=== PATIENT | male | born 1985 | race African-American/Black ===

== ENCOUNTER 2020-11-22 13:04 | Outpatient (CLI) | payer BC ==
[2020-11-22 13:35] LABS: POTASSIUM 4.1 mmol/L (3.5-5.1)
[2020-11-22] MEDS ORDERED: BARIUM SULFATE 450 ML ORAL.SUSP ONE (13:51)
[2020-11-22] MEDS ORDERED: IV NORMAL SALINE 250 ML IV ONE (13:51)
[2020-11-22] MEDS ORDERED: IOHEXOL 300MG/ML 100 ML INFUS..BTL ONE (13:51)
[2020-11-22] MEDS ORDERED: SWABABLE VALVE TRANSFER SET EA MC ONE (13:51)
== END 2020-11-22 23:59 | disposition home or self-care (01) ==
LOC: LAB 13:04
DX: N28.1 Cyst of kidney, acquired (principal); R14.0 Abdominal distension (gaseous)
CPT/HCPCS: 36415; J7050; Q9951; Q9967

== ENCOUNTER 2021-08-20 12:21 | Outpatient (CLI) | payer BC, OTHER ==
[2021-08-20 12:44] LABS: *BILIRUBIN,URIN NEGATIVE (NEGATIVE); *BLOOD, URINE NEGATIVE (NEGATIVE); *CLARITY,URINE CLEAR (CLEAR); *COLOR,URINE YELLOW (YELLOW); *KETONES,URINE NEGATIVE (NEGATIVE); *UROBILINOGEN,URINE 0.2 E.U./dl (NORMAL); LEUKOCYTE ESTERASE ,URINE NEGATIVE (NEGATIVE); NITRITE, URINE NEGATIVE (NEGATIVE); PH,URINE 5.5 (5.0-8.0); UGLUCOSE NEGATIVE (NEGATIVE)
[2021-08-20 12:52] LABS: HEMATOCRIT 43.9 % (36.7-47.1); MEAN CORPUSCULAR HEMOGLOBIN 28.8 uug (23.8-33.4); MEAN CORPUSCULAR VOLUME 86.7 fL (73.0-96.2); PLATELET COUNT (AUTO) 264 K/uL (152-348)
[2021-08-20] MEDS ORDERED: BARIUM SULFATE 450 ML ORAL.SUSP ONE (12:59)
[2021-08-20 13:41] LABS: THYROID STIMULATING HORMONE 1.89 mIU/mL (0.358-3.740)
[2021-08-20 13:58] LABS: BILIRUBIN,TOTAL 0.9 mg/dL (0.2-1.0); POTASSIUM 3.9 mmol/L (3.5-5.1); TOTAL PROTEIN, SERUM 7.8 g/dL (6.4-8.2)
[2021-08-20] MEDS ORDERED: IOHEXOL 300MG/ML 100 ML INFUS..BTL ONE (14:23)
[2021-08-20] MEDS ORDERED: IV NORMAL SALINE 250 ML IV ONE (14:23)
[2021-08-20] MEDS ORDERED: SWABABLE VALVE TRANSFER SET EA MC ONE (14:23)
== END 2021-08-20 23:59 | disposition home or self-care (01) ==
LOC: LAB 12:21
PROVIDERS: ATTEND Internal Medicine
DX: K42.9 Umbilical hernia without obstruction or gangrene (principal); N40.0 Benign prostatic hyperplasia without lower urinary tract symptoms; R68.2 Dry mouth, unspecified
CPT/HCPCS: 36415; 73562; 74178; 80053; 81003; 83036; 84439; 84443; 85025; 85651; 86140; 87086; Q9951; Q9967; J7050